=== PATIENT | male | born 1985 | race African-American/Black ===

== ENCOUNTER 2017-12-21 15:49 | Emergency (ER) | payer OTHER ==
[~2017-12-21] VITALS: Ht 198.1 cm; Wt 111.1 kg
[~2017-12-21 15:49] MED LIST: MIRTAZAPINE15 MG PO; SERTRALINE HCL50 MG PO
== END 2017-12-21 17:15 | disposition home or self-care (01) ==
LOC: ED 15:49
DX: M79.661 Pain in right lower leg (principal); Z87.891 Personal history of nicotine dependence; Z88.6 Allergy status to analgesic agent; Z79.899 Other long term (current) drug therapy
CPT/HCPCS: 93971; 99284

== ENCOUNTER 2021-10-13 03:18 | Emergency (ER) | payer OTHER ==
[~2021-10-13] VITALS: Ht 198.1 cm; Wt 133.8 kg
[2021-10-13] MEDS ORDERED: MELATONIN1 MG PO (03:47)
[2021-10-13] MEDS ORDERED: LEXAPRO10 MG PO (03:48)
--- NOTE | 2021-10-13 07:23 | EKG ---
[facility] [address] [place], [place] [address] Signed Sinus bradycardia Possible Right ventricular hypertrophy Cannot rule out Inferior infarct , age undetermined Abnormal ECG No previous ECGs available Confirmed by LANIE MANCERA MD ([id number]) on 10/13/2021 7:23:24 AM Electronically Signed By: LANIE MANCERA MD 10/13/21722 PATIENT NAME: ANAHYHERNANDEZ CHLOÉ Electrocardiogram DATE OF : 85 PHYSICIAN: LANIE MANCERA MD REPORT #: [id number] REPORT IS CONFIDENTIAL AND NOT TO BE RELEASED WITHOUT AUTHORIZATION
== END 2021-10-13 06:45 | disposition home or self-care (01) ==
LOC: ED 03:18
DX: R07.89 Other chest pain (principal); R00.1 Bradycardia, unspecified; Z88.6 Allergy status to analgesic agent
CPT/HCPCS: 71046; 80053; 83735; 84484; 85025; 85379; 93005; 93010; 99285-25

== ENCOUNTER 2025-10-01 15:00 | Emergency (ER) | payer OTHER ==
[~2025-10-01] VITALS: Ht 198.1 cm; Wt 98.3 kg
[~2025-10-01 15:00] MED LIST changes: +LEXAPRO10 MG PO; +MELATONIN1 MG PO
[2025-10-01 16:24] LABS: BASOPHILS 0.4 % (0.2-1.2); EOSINOPHILS 2.3 % (0.8-7.0); LYMPHOCYTES 22.8 % (21.8-53.1); MCH 28.9 PG (25.7-32.2); MCHC 33.7 g/dL (32.3-36.5); MCV 85.7 fL (79.0-92.2); MONOCYTES 11.4 % (5.3-12.2); NEUTROPHILS 62.8 % (34.0-67.9); RBC 5.23 M/uL (4.63-6.08)
[2025-10-01 16:39] LABS: ALT (SGPT) 51.0 U/L (14-59); AST (SGOT) 24.0 U/L (15-37); GLOMERULAR FILTRATION RATE,EST 108.0 mL/min (>60); PROTEIN, TOTAL 7.4 g/dL (6.4-8.2); UREA NITROGEN 14.0 mg/dL (7-18)
[2025-10-01 18:04] VITALS: BP 137/89
--- NOTE | 2025-10-01 21:33 | EKG ---
[facility] [address] [place] [address] Signed Normal sinus rhythm Increased R/S ratio in V1, consider early transition or posterior infarct Abnormal ECG When compared with ECG of 13-OCT-2021 03:25, Minimal criteria for Inferior infarct are no longer present EKG reattempted due to dextrocardia Confirmed by Grace Garay MD () on 10/01/2025 9:33:22 PM Electronically Signed By: GRACE GARAY MD 10/01/25 2133 PATIENT NAME: HERNANDEZ HIGGINBOTHAM Electrocardiogram DATE OF : 85 PHYSICIAN: GRACE GARAY MD REPORT #: [id number] REPORT IS CONFIDENTIAL AND NOT TO BE RELEASED WITHOUT AUTHORIZATION
--- NOTE | 2025-10-01 21:34 | EKG ---
[facility] [address] [place] [address] Signed Sinus bradycardia Cannot rule out Anterior infarct , age undetermined Abnormal ECG When compared with ECG of 01-OCT-2025 15:12, Minimal criteria for Anterior infarct are now present Right sided EKG due to dextrocardia Confirmed by Grace Garay MD () on 10/01/2025 9:34:34 PM Electronically Signed By: GRACE GARAY MD 10/01/25 2134 PATIENT NAME: HERNANDEZ HIGGINBOTHAM CHLOÉ Electrocardiogram DATE OF : 85 PHYSICIAN: GRACE GARAY MD REPORT #: [id number] REPORT IS CONFIDENTIAL AND NOT TO BE RELEASED WITHOUT AUTHORIZATION
== END 2025-10-01 18:04 | disposition home or self-care (01) ==
LOC: ED 15:00
PROVIDERS: Emergency Medicine
DX: R07.9 Chest pain, unspecified (principal); Z88.8 Allergy status to other drugs, medicaments and biological substances; Z79.899 Other long term (current) drug therapy
CPT/HCPCS: 36415; 71045; 80053; 83735; 84484; 85025; 93005; 93010; 99285-25